=== PATIENT | male | born 1955 | race Caucasian/White ===

== ENCOUNTER 2016-07-17 09:05 | Emergency (ER) | payer BC ==
[2016-07-17] MEDS ORDERED: SODIUM CHLORIDE 0.9% 1,000 ML ONE (09:45)
[2016-07-17] MEDS ORDERED: KETOROLAC 30 MG/ML VIAL ONE (09:45)
== END 2016-07-17 12:18 | disposition home or self-care (01) ==
LOC: ER 09:05
DX: N13.2 Hydronephrosis with renal and ureteral calculous obstruction (principal)
CPT/HCPCS: 36415; 74176; 80053; 81001; 82553; 83690; 84484; 85025; 93005; 96361; 96374